=== PATIENT | male | born 1980 | race Caucasian/White ===

== ENCOUNTER 2017-03-10 19:15 | Inpatient (IN) | payer OTHER ==
[~2017-03-10] VITALS: Ht 175.3 cm; Wt 65.0 kg
[2017-03-10 22:00] VITALS: BP 103/63; RESP 18
[2017-03-10 23:00] VITALS: Ht 175.3 cm; Wt 65.0 kg
[2017-03-11 02:00] VITALS: BP 110/68; RESP 18
[2017-03-11] MEDS ORDERED: LACTULOSE 30ML CUP PO PRN (02:30)
[2017-03-11] MEDS ORDERED: ACETAMINOPHEN 325 MG TAB PO PRN (02:30)
[2017-03-11] MEDS ORDERED: BISACODYL 10 MG SUPP PR PRN (02:30)
[2017-03-11] MEDS ORDERED: ALBUTEROL/IPRATROPIUM (NEB) 3 ML AMP HHN PRN (03:00)
[2017-03-11 07:30] VITALS: BP 116/75; RESP 18
[2017-03-11] MEDS: COLLAGENASE 30 GM TUBE TOP SCH (09:14)
[2017-03-11] MEDS: NICOTINE (7 MG/24 HR) PATCH TRANSDERM SCH (09:14)
[2017-03-11] MEDS: MUPIROCIN 2% 22 GM OINT TOP SCH (09:14)
[2017-03-11] MEDS: DOCUSATE SODIUM 100 MG CAP PO SCH ×2 (09:15→21:59)
[2017-03-11] MEDS: FAMOTIDINE 20 MG TAB PO SCH ×2 (09:15→21:59)
[2017-03-11] MEDS: METOPROLOL 25 MG TAB PO SCH ×2 (09:15→21:59)
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
[2017-03-11 14:00] VITALS: BP 137/78; RESP 18
[2017-03-11 20:17] VITALS: BP 114/79; RESP 19
[2017-03-11] MEDS: HYDROCODONE/APAP (7.5/325) TAB PO PRN (21:58)
[2017-03-12 01:58] VITALS: BP 99/60; RESP 18
[2017-03-12 07:00] VITALS: BP 107/60; RESP 18
[2017-03-12 08:00] VITALS: BP 107/60; PULSE 99; RESP 18
[2017-03-12] MEDS: FAMOTIDINE 20 MG TAB PO SCH ×2 (08:46→20:36)
[2017-03-12] MEDS: COLLAGENASE 30 GM TUBE TOP SCH (08:46)
[2017-03-12] MEDS: MUPIROCIN 2% 22 GM OINT TOP SCH (08:46)
[2017-03-12] MEDS: DOCUSATE SODIUM 100 MG CAP PO SCH ×2 (08:47→20:37)
[2017-03-12] MEDS: METOPROLOL 25 MG TAB PO SCH ×2 (08:47→20:37)
[2017-03-12] MEDS: NICOTINE (7 MG/24 HR) PATCH TRANSDERM SCH (08:47)
--- NOTE | 2017-03-12 15:24 | RADRPT ---
PROCEDURE: Nonvascular ultrasound examination of the soft tissues of the left lower extremity. CLINICAL INDICATION: Left lower extremity pain. TECHNIQUE: Ramsey scale and color Doppler sonographic images of the soft tissues of the left lower e xtremity are obtained of the area of clinical concern. COMPARISON: None. FINDINGS: Large avascular fluid collection present inferolateral to the left knee measuring up to 1.6 x 5.6 cm . IMPRESSION: Large knee effusion/seroma/chronic hematoma inferolateral to the left knee. Aspiration may be useful for further analysis. RPTAT: AADD .Marcos Adams MD, MD Date Time Electronically viewed and signed by .Marcos Adams MD, on 03/12/2017 15:24 .B/
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
[2017-03-12 20:00] VITALS: BP 126/76; RESP 18
[2017-03-13 02:00] VITALS: BP 130/74; RESP 18
[2017-03-13] MEDS: HYDROCODONE/APAP (7.5/325) TAB PO PRN ×2 (02:34→09:22)
[2017-03-13 07:30] VITALS: BP 111/55; RESP 20
[2017-03-13] MEDS: NICOTINE (7 MG/24 HR) PATCH TRANSDERM SCH (09:00)
[2017-03-13] MEDS: DOCUSATE SODIUM 100 MG CAP PO SCH (09:00)
[2017-03-13] MEDS: METOPROLOL 25 MG TAB PO SCH ×2 (09:00→20:56)
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
[2017-03-13] MEDS: FAMOTIDINE 20 MG TAB PO SCH ×2 (09:21→20:55)
[2017-03-13] MEDS: COLLAGENASE 30 GM TUBE TOP SCH (09:22)
[2017-03-13] MEDS: MUPIROCIN 2% 22 GM OINT TOP SCH (09:22)
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
--- NOTE | 2017-03-13 12:30 | CONS ---
Date/Time of Note Date/Time of Note DATE: 03/13/17 TIME: 12:30 Consult Date/Type/Reason Admit Date/Time Mar 10, 2017 at 22:23 Initial Consult Date 03/13/17 Type of Consultation: surgical Ordering Provider: JAYLON CHRISTOPHER DO Objective Vital Signs Date Time Temp Pulse Resp B/P Pulse Ox O2 Delivery O2 Flow Rate FiO2 03/13/17 02:00 97.9 98 18 130/74 96 03/12/17 08:00 Room Air Intake and Output 03/12/17 03/12/17 03/13/17 15:00 23:00 07:00 Intake Total 1200 ml 100 ml Output Total 600 ml 800 ml Balance 600 ml -700 ml INTERDISCIPLINARY TEAM CONFERENCE BOWEL- Cont BLADDER-Cont SKIN- healing abrasions OT- DRESSING-cga BATHING-cga TOILETING-cga PT- BED MOBILITY-cga TRANSFERS-cga AMBULATION-cga [address] MOBILITY-sba SPEECH- COGNITION-sba DYPHAGIA-mech soft (due to multiple facial fractures) A/P- Interdisciplinary team conference held today. Please see interdisciplinary sheet. Working toward d.c. on 03/17 with post discharge follow up of physical therapy, occupational therapy. Results/Medications Result Diagram: 03/12/17 1046 03/12/17 1046 Medications Current Medications Acetaminophen (Tylenol Tab) 650 mg Q4H PRN PO PAIN Last administered on 20:35; Admin Dose 650 MG; Start 03/11/17 at 02:30 Bisacodyl (Dulcolax Supp) 10 mg DAILY PRN [place] CONSTIPATION; Start 03/11/17 at 02:30 Lactulose (Enulose) 20 gm DAILY PRN PO CONSTIPATION; Start 03/11/17 at 02:30 Acetaminophen/ Hydrocodone Bitart ([place] (7.5-325)) 1 tab Q4H PRN PO MODERATE TO SEVERE PAIN Last administered on 03/13/17 09:22; Admin Dose 1 TAB; Start 03/11/17 at 02:30 Collagenase (Santyl) 1 applic DAILY TOP Last administered on 03/13/17 09:22; Admin Dose 1 APPLIC; Start 03/11/17 at 09:00 Famotidine (Pepcid) 20 mg BID PO Last administered on 03/13/17 09:21; Admin Dose 20 MG; Start 03/11/17 at 09:00 Metoprolol Tartrate (Lopressor) 25 mg BID PO Last administered on 03/12/17 20 :37; Admin Dose 25 MG; Start 03/11/17 at 09:00 Mupirocin (Bactroban) 1 applic DAILY TOP Last administered on 03/13/17 09:22 ; Admin Dose 1 APPLIC; Start 03/11/17 at 09:00 Docusate Sodium (Colace) 100 mg DAILY PO ; Start 03/14/17 at 09:00 ROSA CRANE MD Mar 13, 2017 12:30
--- NOTE | 2017-03-13 12:30 | CONS ---
Date/Time of Note Date/Time of Note DATE: 03/13/17 TIME: 12:30 Consult Date/Type/Reason Admit Date/Time Mar 10, 2017 at 22:23 Initial Consult Date 03/13/17 Type of Consultation: surgical Ordering Provider: JAYLON CHRISTOPHER DO Objective Vital Signs Date Time Temp Pulse Resp B/P Pulse Ox O2 Delivery O2 Flow Rate FiO2 03/13/17 02:00 97.9 98 18 130/74 96 03/12/17 08:00 Room Air Intake and Output 03/12/17 03/12/17 03/13/17 15:00 23:00 07:00 Intake Total 1200 ml 100 ml Output Total 600 ml 800 ml Balance 600 ml -700 ml INTERDISCIPLINARY TEAM CONFERENCE BOWEL- Cont BLADDER-Cont SKIN- healing abrasions OT- DRESSING-cga BATHING-cga TOILETING-cga PT- BED MOBILITY-cga TRANSFERS-cga AMBULATION-cga [address] MOBILITY-sba SPEECH- COGNITION-sba DYPHAGIA-mech soft (due to multiple facial fractures) A/P- Interdisciplinary team conference held today. Please see interdisciplinary sheet. Working toward d.c. on 03/17 with post discharge follow up of physical therapy, occupational therapy. Results/Medications Result Diagram: 03/12/17 1046 03/12/17 1046 Medications Current Medications Acetaminophen (Tylenol Tab) 650 mg Q4H PRN PO PAIN Last administered on 20:35; Admin Dose 650 MG; Start 03/11/17 at 02:30 Bisacodyl (Dulcolax Supp) 10 mg DAILY PRN [place] CONSTIPATION; Start 03/11/17 at 02:30 Lactulose (Enulose) 20 gm DAILY PRN PO CONSTIPATION; Start 03/11/17 at 02:30 Acetaminophen/ Hydrocodone Bitart ([place] (7.5-325)) 1 tab Q4H PRN PO MODERATE TO SEVERE PAIN Last administered on 03/13/17 09:22; Admin Dose 1 TAB; Start 03/11/17 at 02:30 Collagenase (Santyl) 1 applic DAILY TOP Last administered on 03/13/17 09:22; Admin Dose 1 APPLIC; Start 03/11/17 at 09:00 Famotidine (Pepcid) 20 mg BID PO Last administered on 03/13/17 09:21; Admin Dose 20 MG; Start 03/11/17 at 09:00 Metoprolol Tartrate (Lopressor) 25 mg BID PO Last administered on 03/12/17 20 :37; Admin Dose 25 MG; Start 03/11/17 at 09:00 Mupirocin (Bactroban) 1 applic DAILY TOP Last administered on 03/13/17 09:22 ; Admin Dose 1 APPLIC; Start 03/11/17 at 09:00 Docusate Sodium (Colace) 100 mg DAILY PO ; Start 03/14/17 at 09:00 ROSA CRANE MD Mar 13, 2017 12:30
--- NOTE | 2017-03-13 12:30 | CONS ---
Date/Time of Note Date/Time of Note DATE: 03/13/17 TIME: 12:30 Consult Date/Type/Reason Admit Date/Time Mar 10, 2017 at 22:23 Initial Consult Date 03/13/17 Type of Consultation: surgical Ordering Provider: JAYLON CHRISTOPHER DO Objective Vital Signs Date Time Temp Pulse Resp B/P Pulse Ox O2 Delivery O2 Flow Rate FiO2 03/13/17 02:00 97.9 98 18 130/74 96 03/12/17 08:00 Room Air Intake and Output 03/12/17 03/12/17 03/13/17 15:00 23:00 07:00 Intake Total 1200 ml 100 ml Output Total 600 ml 800 ml Balance 600 ml -700 ml INTERDISCIPLINARY TEAM CONFERENCE BOWEL- Cont BLADDER-Cont SKIN- healing abrasions OT- DRESSING-cga BATHING-cga TOILETING-cga PT- BED MOBILITY-cga TRANSFERS-cga AMBULATION-cga [address] MOBILITY-sba SPEECH- COGNITION-sba DYPHAGIA-mech soft (due to multiple facial fractures) A/P- Interdisciplinary team conference held today. Please see interdisciplinary sheet. Working toward d.c. on 03/17 with post discharge follow up of physical therapy, occupational therapy. Results/Medications Result Diagram: 03/12/17 1046 03/12/17 1046 Medications Current Medications Acetaminophen (Tylenol Tab) 650 mg Q4H PRN PO PAIN Last administered on 20:35; Admin Dose 650 MG; Start 03/11/17 at 02:30 Bisacodyl (Dulcolax Supp) 10 mg DAILY PRN [place] CONSTIPATION; Start 03/11/17 at 02:30 Lactulose (Enulose) 20 gm DAILY PRN PO CONSTIPATION; Start 03/11/17 at 02:30 Acetaminophen/ Hydrocodone Bitart ([place] (7.5-325)) 1 tab Q4H PRN PO MODERATE TO SEVERE PAIN Last administered on 03/13/17 09:22; Admin Dose 1 TAB; Start 03/11/17 at 02:30 Collagenase (Santyl) 1 applic DAILY TOP Last administered on 03/13/17 09:22; Admin Dose 1 APPLIC; Start 03/11/17 at 09:00 Famotidine (Pepcid) 20 mg BID PO Last administered on 03/13/17 09:21; Admin Dose 20 MG; Start 03/11/17 at 09:00 Metoprolol Tartrate (Lopressor) 25 mg BID PO Last administered on 03/12/17 20 :37; Admin Dose 25 MG; Start 03/11/17 at 09:00 Mupirocin (Bactroban) 1 applic DAILY TOP Last administered on 03/13/17 09:22 ; Admin Dose 1 APPLIC; Start 03/11/17 at 09:00 Docusate Sodium (Colace) 100 mg DAILY PO ; Start 03/14/17 at 09:00 ROSA CRANE MD Mar 13, 2017 12:30
[2017-03-13 14:00] VITALS: BP 128/58; RESP 20
[2017-03-14 02:00] VITALS: BP 122/74; RESP 18
[2017-03-14 07:00] VITALS: BP 112/67; RESP 18
[2017-03-14] MEDS: METOPROLOL 25 MG TAB PO SCH ×2 (08:28→21:00)
[2017-03-14] MEDS: FAMOTIDINE 20 MG TAB PO SCH ×2 (08:30→21:49)
[2017-03-14] MEDS: MUPIROCIN 2% 22 GM OINT TOP SCH (08:31)
[2017-03-14] MEDS: COLLAGENASE 30 GM TUBE TOP SCH (08:31)
[2017-03-14] MEDS: HYDROCODONE/APAP (7.5/325) TAB PO PRN ×2 (08:31→18:34)
[2017-03-14] MEDS ORDERED: DOCUSATE SODIUM 100 MG CAP PO SCH (09:00)
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
--- NOTE | 2017-03-14 14:08 | RADRPT ---
PROCEDURE: CT Pelvis without Contrast CLINICAL INDICATION: Swelling TECHNIQUE: Transaxial images were obtained through the pelvis on a multi-slice scanner without the intravenous contrast administration. no oral contrast had previously been given. Sagittal and jamie nal re-formations were subsequently reconstructed. One or more of the following dose reduction techniques were used: - Automated exposure control. - Adjustment of the mA and/or kV according to patient size. - Use of iterative reconstruction technique. Radiation dose: CTDIvol = 5.41 mGy; DLP = 239.70 mGy-cm. COMPARISON: No prior studies are available for comparison. FINDINGS: Osseous structures: There is a nondisplaced fracture through the right sacral ala. There are healing fractures with callous formation seen at the extreme lateral superior pubic rami bilaterally, and a t the left medial superior pubic ramus there is a comminuted fracture involving the right inferior p ubic ramus with anterior fragment is displaced laterally by the bone width. There are 2 fractures in volving the left inferior pubic ramus 1 anteriorly and the other posteriorly neither of which are si gnificantly displaced and with callous formation seen about each. The remaining visualized osseous e lements appear intact. Hip joints: Are anatomically maintained. No joint effusion is identified. Sacroiliac joints: Appear unremarkable with no significant sclerosis or erosion identified. Extraperitoneal soft tissues: There is a collection of fluid along the posterolateral left thigh ext ending to the subcutaneous fat measuring 2.7 cm in thickness and 33 HU in density. This extends infe riorly beyond the limits of the study Bladder: The bladder is suboptimally distended. Reproductive organs: Unremarkable. Visualized bowel: Appears unremarkable. Peritoneum: No free intraperitoneal fluid or air is identified. Vessels: Normal in caliber with no aneurysmal dilatation. Lymph nodes: No pathologically enlarged nodes are identified. IMPRESSION: 1. Nondisplaced fracture involving the right sacral ala. Some callus formation is evident. 2. Healing fractures, nondisplaced involving the extreme lateral aspects of all superior pubic rami as well as the medial aspect the left superior pubic ramus. 3. Comminuted fracture involving the right inferior pubic ramus with the main anterior fragment dis placed laterally by the bone width. Callus formation is evident. 4. 2 fractures are seen at the left inferior pubic ramus 1 anteriorly and the other posteriorly nei ther which is significantly displaced with callous formation seen about each. 5. There is fluid within the posterolateral subcutaneous fat of the proximal left thigh extending i nferiorly beyond the limits of the study measuring 2.7 cm in thickness and measuring 33 HU suspiciou s for hematoma. Physician Sharron Date Time Electronically viewed and signed by Aylin Marquez Physician on 03/14/2017 14:08 /
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
[2017-03-14 20:00] VITALS: BP 107/66; RESP 20
[2017-03-15 02:00] VITALS: BP 111/73; RESP 18
[2017-03-15 07:00] VITALS: BP 112/73; RESP 18
[2017-03-15] MEDS: HYDROCODONE/APAP (7.5/325) TAB PO PRN ×2 (09:02→20:02)
[2017-03-15] MEDS: METOPROLOL 25 MG TAB PO SCH ×2 (09:03→20:02)
[2017-03-15] MEDS: FAMOTIDINE 20 MG TAB PO SCH ×2 (09:03→20:01)
[2017-03-15] MEDS: COLLAGENASE 30 GM TUBE TOP SCH (09:07)
[2017-03-15] MEDS: MUPIROCIN 2% 22 GM OINT TOP SCH (09:09)
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
[2017-03-15 20:00] VITALS: BP 130/78; RESP 18
[2017-03-15] MEDS: BUSPIRONE 5 MG TAB PO PRN (22:23)
[2017-03-16 02:00] VITALS: BP 124/74; PULSE 84; RESP 18
[2017-03-16 07:30] VITALS: BP 116/66; RESP 18
[2017-03-16] MEDS: HYDROCODONE/APAP (7.5/325) TAB PO PRN ×2 (07:51→20:20)
[2017-03-16] MEDS: FAMOTIDINE 20 MG TAB PO SCH ×2 (09:03→20:20)
[2017-03-16] MEDS: METOPROLOL 25 MG TAB PO SCH ×2 (09:04→20:20)
[2017-03-16] MEDS: COLLAGENASE 30 GM TUBE TOP SCH (09:07)
[2017-03-16] MEDS: MUPIROCIN 2% 22 GM OINT TOP SCH (09:07)
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
[2017-03-16 14:00] VITALS: BP 116/73; RESP 18
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
[2017-03-16 19:29] VITALS: BP 114/68; RESP 18
[2017-03-16] MEDS: BUSPIRONE 5 MG TAB PO PRN (20:21)
[2017-03-17 02:00] VITALS: BP 100/60; PULSE 88; RESP 18
[2017-03-17] MEDS: HYDROCODONE/APAP (7.5/325) TAB PO PRN ×3 (03:28→12:06)
[2017-03-17 07:30] VITALS: BP 97/54; RESP 20
[2017-03-17 07:39] VITALS: BP 97/54; PULSE 74; RESP 20
[2017-03-17] MEDS: FAMOTIDINE 20 MG TAB PO SCH (08:30)
[2017-03-17] MEDS: COLLAGENASE 30 GM TUBE TOP SCH (08:30)
[2017-03-17] MEDS: MUPIROCIN 2% 22 GM OINT TOP SCH (08:31)
[2017-03-17] MEDS: METOPROLOL 25 MG TAB PO SCH (09:00)
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
== END 2017-03-17 12:15 | disposition home health service (06) | DRG 946 ==
LOC: VRC 22:23
PROVIDERS: ADMIT Physical Medicine & Rehabilitation; ATTEND Internal Medicine Nephrology
PROC: F07Z5ZZ Bed Mobility Treatment (ICD-10-PCS; principal; 2017-03-10)
PROC: F08Z2ZZ Grooming/Personal Hygiene Treatment (ICD-10-PCS; 2017-03-10)
PROC: F06Z6ZZ Communicative/Cognitive Integration Skills Treatment (ICD-10-PCS; 2017-03-10)
DX: S06.5X9D Traumatic subdural hemorrhage with loss of consciousness of unspecified duration, subsequent encounter (principal); F15.10 Other stimulant abuse, uncomplicated; S42.122D Displaced fracture of acromial process, left shoulder, subsequent encounter for fracture with routine healing; S42.001D Fracture of unspecified part of right clavicle, subsequent encounter for fracture with routine healing; S32.512D Fracture of superior rim of left pubis, subsequent encounter for fracture with routine healing; S32.511D Fracture of superior rim of right pubis, subsequent encounter for fracture with routine healing; S32.10XD Unspecified fracture of sacrum, subsequent encounter for fracture with routine healing; S32.402D Unspecified fracture of left acetabulum, subsequent encounter for fracture with routine healing; S82.001D Unspecified fracture of right patella, subsequent encounter for closed fracture with routine healing; S02.40DD Maxillary fracture, left side, subsequent encounter for fracture with routine healing; S02.82XD Fracture of other specified skull and facial bones, left side, subsequent encounter for fracture with routine healing; S22.20XD Unspecified fracture of sternum, subsequent encounter for fracture with routine healing; S22.43XD Multiple fractures of ribs, bilateral, subsequent encounter for fracture with routine healing; S02.19XD Other fracture of base of skull, subsequent encounter for fracture with routine healing; G89.11 Acute pain due to trauma; D47.3 Essential (hemorrhagic) thrombocythemia; D64.9 Anemia, unspecified; M25.462 Effusion, left knee; F41.9 Anxiety disorder, unspecified; V49.9XXD Car occupant (driver) (passenger) injured in unspecified traffic accident, subsequent encounter
CPT/HCPCS: 72192; 73700; 80048; 80053; 80307; 81001; 83735; 84100; 85025; 87081; 87086; 92507; 92523; 92610; 97110; 97116; 97150; 97163; 97167; 97530; 97535